=== PATIENT | female | born 1965 | race Caucasian/White ===

== ENCOUNTER 2017-03-02 08:57 | Day surgery (SDC) | payer BC ==
[~2017-03-02] VITALS: Ht 165.1 cm; Wt 66.2 kg
--- NOTE | ~2017-03-02 | EGD ---
EGD REPORT [facility] [address] [place] [address] NAME: AJ MARTINEZ : [birth year] STATUS : REG [facility] [place] PAT#: [id number] AGE: 51 ADM/REG DATE : 03/02/17 MR#: [id number] REPORT SERV DATE: 03/04/17 DICTATED BY: JASWINDER SINCLAIR DATE: 03/04/17 REPORT STATUS : Draft TRANSCRIBED BY: [facility] DATE: 03/04/17 [facility] Patient Name: Aj Martinez Date of : 1965 Attending MD: JASWINDER SINCLAIR MD Procedure Date No Time: 03/02/2017 Procedure: Colonoscopy Indications: Chronic diarrhea Referring MD: NUSRAT ARREOLA Medicines: Propofol per Anesthesia Complications: No immediate complications. Procedure: Pre-Anesthesia Assessment: - ASA Grade Assessment: III - A patient with severe systemic disease. After I obtained informed consent, the scope was passed under direct vision. Throughout the procedure, the patient's blood pressure, pulse, and oxygen saturations were monitored continuously. The PCF H190L [id number] was introduced through the anus and advanced to the cecum, identified by appendiceal orifice and ileocecal valve. The colonoscopy was performed without difficulty. The patient tolerated the procedure well. The quality of the bowel preparation was fair. Findings: The perianal and digital rectal examinations were normal. A few medium-mouthed diverticula were found in the recto-sigmoid colon and in the sigmoid colon. External internal hemorrhoids were found during retroflexion and were Grade II (internal hemorrhoids that prolapse but reduce spontaneously). No obvious fistulous opening was identified Random biopsies of the colon were obtained to rule out microscopic colitis. The rest of the colon was normal. Impression: - Diverticulosis in the recto-sigmoid colon and in the sigmoid colon. - External internal hemorrhoids. Recommendation: - Patient has a contact number available for emergencies. The signs and symptoms of potential delayed complications were discussed with the patient. Return to normal activities tomorrow. Written discharge instructions were provided to the patient. - Regular diet. EGD REPORT [address] [address] NAME: AJ MARTINEZ : [birth year] STATUS : REG [facility] [place] PAT#: [id number] AGE: 51 ADM/REG DATE : 03/02/17 MR#: [id number] REPORT SERV DATE: 03/04/17 DICTATED BY: JASWINDER SINCLAIR. DATE: 03/04/17 REPORT STATUS : Draft TRANSCRIBED BY: [employer] DATE: 03/04/17 - Patient has a contact number available for emergencies. The signs and symptoms of potential delayed complications were discussed with the patient. Return to normal activities tomorrow. Written discharge instructions were provided to the patient. - Continue present medications. Procedure Code(s): --- Professional --- 98557, Colonoscopy, flexible, proximal to splenic flexure; diagnostic, with or without collection of specimen(s) by brushing or washing, with or without colon decompression (separate procedure) Diagnosis Code(s): --- Professional --- K64.1, Second degree hemorrhoids K64.4, Residual hemorrhoidal skin tags K57.30, Diverticulosis of large intestine without perforation or abscess without bleeding K52.9, Noninfective gastroenteritis and colitis, unspecified CPT copyright 2013 [employer]. All rights reserved. The codes documented in this report are preliminary and upon digital field service technician review may be revised to meet current compliance requirements. Jaswinder Sinclair MD JASWINDER SINCLAIR MD 03/02/2017 10:37 AM This report has been signed electronically. Number of Addenda: 0 Note Initiated On: 03/02/2017 10:01 AM Scope Withdrawal Time 0 hours 9 minutes 11 seconds [id number] [place] [id number]
--- NOTE | ~2017-03-02 | EGD ---
EGD REPORT [facility] [address] [address] NAME: AJ MARTINEZ : [birth year] [place] : [place] [facility] [place] [id number] AGE: 51 ADM/REG DATE : 03/02/17 MR#: [id number] REPORT SERV DATE: 03/04/17 DICTATED BY: JASWINDER SINCLAIR DATE: 03/04/17 REPORT STATUS : Draft [facility] DATE: 03/04/17 Endoscopy Center Patient Name: Aj Martinez Date of : 1965 Attending MD: JASWINDER SINCLAIR MD Procedure Date No Time: 03/02/2017 Procedure: Colonoscopy Indications: Chronic diarrhea Referring MD: NUSRAT ARREOLA Medicines: Propofol per Anesthesia Complications: No immediate complications. Procedure: Pre-Anesthesia Assessment: - ASA Grade Assessment: III - A patient with severe systemic disease. After I obtained informed consent, the scope was passed under direct vision. Throughout the procedure, the patient's blood pressure, pulse, and oxygen saturations were monitored continuously. The PCF H190L [id number] was introduced through the anus and advanced to the cecum, identified by appendiceal orifice and ileocecal valve. The colonoscopy was performed without difficulty. The patient tolerated the procedure well. The quality of the bowel preparation was fair. Findings: The perianal and digital rectal examinations were normal. A few medium-mouthed diverticula were found in the recto-sigmoid colon and in the sigmoid colon. External internal hemorrhoids were found during retroflexion and were Grade II (internal hemorrhoids that prolapse but reduce spontaneously). No obvious fistulous opening was identified Random biopsies of the colon were obtained to rule out microscopic colitis. The rest of the colon was normal. Impression: - Diverticulosis in the recto-sigmoid colon and in the sigmoid colon. - External internal hemorrhoids. Recommendation: - Patient has a contact number available for emergencies. The signs and symptoms of potential delayed complications were discussed with the patient. Return to normal activities tomorrow. Written discharge instructions were provided to the patient. - Regular diet. EGD REPORT [address] [address] NAME: AJ MARTINEZ : [birth year] STATUS : [place] [facility] [place]#: [id number] AGE: 51 ADM/REG DATE : 03/02/17 MR#: [id number] REPORT SERV DATE: 03/04/17 DICTATED BY: JASWINDER SINCLAIR. DATE: 03/04/17 REPORT STATUS : Draft TRANSCRIBED BY: [employer] DATE: 03/04/17 - Patient has a contact number available for emergencies. The signs and symptoms of potential delayed complications were discussed with the patient. Return to normal activities tomorrow. Written discharge instructions were provided to the patient. - Continue present medications. Procedure Code(s): --- Professional --- 11677, Colonoscopy, flexible, proximal to splenic flexure; diagnostic, with or without collection of specimen(s) by brushing or washing, with or without colon decompression (separate procedure) Diagnosis Code(s): --- Professional --- K64.1, Second degree hemorrhoids K64.4, Residual hemorrhoidal skin tags K57.30, Diverticulosis of large intestine without perforation or abscess without bleeding K52.9, Noninfective gastroenteritis and colitis, unspecified CPT copyright 2013 [employer]. All rights reserved. The codes documented in this report are preliminary and upon interstate bus driver review may be revised to meet current compliance requirements. Jaswinder Sinclair MD JASWINDER SINCLAIR MD 03/02/2017 10:37 AM This report has been signed electronically. Number of Addenda: 0 Note Initiated On: 03/02/2017 10:01 AM Scope Withdrawal Time 0 hours 9 minutes 11 seconds [id number] [place] [id number]
[~2017-03-02 08:57] MED LIST: COMBIVENT RESPIM4 GM INH; DULERA 200 MCG/13 GM INH; FLONASE NAS; LEVAQUIN750 MG PO; NEUR300 PO; P10 PO; PROAIR HFA INH; PROAIR HFA PO; REMICADE IV; TOPAMAX100 PO; VENTOLIN HFA INH; ZOL100 PO; [UNRECOGNIZED DRUG - OTHER] PO
== END 2017-03-02 23:59 | disposition home health service (06) ==
LOC: DMU 08:57
PROVIDERS: Internal Medicine Gastroenterology
PROC: 0DBE8ZX Excision of Large Intestine, Via Natural or Artificial Opening Endoscopic, Diagnostic (ICD-10-PCS; principal; 2017-03-02 10:30)
DX: K64.1 Second degree hemorrhoids (principal); K57.30 Diverticulosis of large intestine without perforation or abscess without bleeding; K50.90 Crohn's disease, unspecified, without complications; J44.9 Chronic obstructive pulmonary disease, unspecified; F17.210 Nicotine dependence, cigarettes, uncomplicated; Z79.899 Other long term (current) drug therapy; Z90.49 Acquired absence of other specified parts of digestive tract; Z98.890 Other specified postprocedural states; F41.9 Anxiety disorder, unspecified; F32.9 Major depressive disorder, single episode, unspecified; Z88.5 Allergy status to narcotic agent
CPT/HCPCS: 88305